=== PATIENT | male | born 1970 | race Caucasian/White ===

== ENCOUNTER → 2021-10-01 | Day surgery (SDC) | payer BC, OTHER ==
[~2021-10-01] MED LIST: Ketamine 200 MG/20 ML MDV ONE; Lidocaine 2% 5 ML SDV ONE; Ondansetron 4 MG/2 ML SDV ONE; Propofol 200 MG/20 ML SDV ONE; fentaNYL 50 MCG/ML SDV ONE
[2021-10-01] MEDS: Lactated Ringers 1,000 ML IV SCH (14:56)
[2021-10-01] MEDS: Pantoprazole 40 MG Vial IVPUSH ONE (16:04)
[2021-10-01 17:17] VITALS: PULSE 73
[2021-10-01 17:19] VITALS: BP 106/72
== END ==
LOC: CC.SDS 14:33
PROVIDERS: ATTEND Surgery
DX: K31.89 Other diseases of stomach and duodenum (principal); K31.819 Angiodysplasia of stomach and duodenum without bleeding; K29.90 Gastroduodenitis, unspecified, without bleeding; K44.9 Diaphragmatic hernia without obstruction or gangrene; K21.00 Gastro-esophageal reflux disease with esophagitis, without bleeding; F41.9 Anxiety disorder, unspecified; G43.909 Migraine, unspecified, not intractable, without status migrainosus; E86.0 Dehydration; I48.91 Unspecified atrial fibrillation; Z79.899 Other long term (current) drug therapy; Z87.891 Personal history of nicotine dependence; Z98.890 Other specified postprocedural states; Z79.82 Long term (current) use of aspirin
CPT/HCPCS: 43239; C9113; J2405; J2704; J3010; J7120